=== PATIENT | male | born 1950 | race Caucasian/White ===

== ENCOUNTER → 2017-05-17 | Outpatient (CLI) | payer BC, MEDICARE ==
[~2017-05-17] MED LIST: ASPIRIN 81MG TA81 MG PO; BACTRIM DS 8001 TA1 PO; CARVEDILOL 1212.5 MG PO; EFFIENT10 M2 PO; LIPITOR40 M1 PO; PANTOPRAZOLE SO40 M1 PO; TAMSULOSIN HYD0.4 MG PO; VASCEPA1 GM PO
[2017-05-17 13:03] LABS: BILIRUBIN, INDIRECT 0.94 mg/dL (0-0.9); BUN 21 mg/dL (7-18)
[2017-05-17 13:04] LABS: GFR (ESTIMATED) 61 ML/MIN (>60)
--- NOTE | 2017-05-17 16:00 | RADIOLOGY REPORT PS360 ---
CHEST(2 VIEWS-NOT PORTABLE) HISTORY: SHORTNESS OF BREATH, CAD ORDERING PHYSICIAN: Tim Ansari MD PATIENT AGE: 66 years COMPARISON: None FINDINGS: There are severe present but is changes with bullous change in the right upper lobe and left midlung. There is normal heart size. There is coarsening of the interstitial markings in the lower lobes consistent with chronic peribronchial inflammatory change/chronic interstitial pneumonitis/fibrosis. No lobar consolidation or collapse. No acute bony anomalies. IMPRESSION: Emphysematous changes with pulmonary fibrosis
--- NOTE | 2017-05-17 19:18 | RADIOLOGY REPORT PS360 ---
PROCEDURE: 2-D M-mode and color Doppler study INDICATIONS FOR THE TEST: Chest pain COPD Heart Murmur Tobacco Smoking Palpitations Fatigue Syncope Edema HypertensionXDiabetes Mellitus Rheumatic Fever SOBXDOEXObesityXHyperlipidemiaX Family History HD Additional History CAD STENTS PATIENT INFORMATION HEIGHT: 68 WEIGHT:218 GENDER: Male B/P:132/80 2-D/M-MODE INTERPRETATION: 2-D MEASUREMENTS OBSERVED VALUES IN CMS Right Ventricular Dimension (RVDd) 2.4 Interventricular Septum (Thickness)(IVsd) 1.3 Left Ventricular Internal Dimensions(LVIDd) 3.9 Left Ventricular Posterior Wall (Thickness)(LVPWd) 1.3 Aortic Root 4.6 Aortic Cusp Separation 2.2 Left Atrial Dimensions (LAD) 3.6 2D 1. Left atrium is mildly enlarged, left ventricle is normal size, there is mild concentric left ventricular hypertrophy, visually estimated ejection fraction of 55% with no obvious regional wall motion abnormality. 2. The right atrium and right ventricle are relatively normal size and function. 3. The aortic valve is minimally thickened and fibrosed. 4. The mitral and tricuspid valve are structurally normal. 5. The pulmonic valve is not well visualized. 6. No significant pericardial effusion noted. DOPPLER INTERROGATION: The Doppler interrogation of the aortic mitral and tricuspid valve reveals presence of mild mitral and tricuspid regurgitation, tricuspid regurgitant jet velocity is insufficient for calculation of the right ventricular systolic pressure. Grade 1 diastolic dysfunction seen without tissue Doppler evidence of raised left atrial pressure. CONCLUSION: 1. Mildly enlarged left atrium, normal left ventricular size, mild concentric left ventricular hypertrophy, visually estimated ejection fraction of 55% with no obvious regional wall motion abnormality, grade 1 diastolic dysfunction seen without tissue Doppler evidence of raised left atrial pressure. 2. Mild mitral and tricuspid regurgitation, tricuspid regurgitant jet velocity is insufficient for calculation of the right ventricular systolic pressure. 3. No significant pericardial effusion noted.
--- NOTE | 2017-05-18 11:31 | RADIOLOGY REPORT PS360 ---
CT CHEST W/WO CONTRAST HISTORY: Follow-up pulmonary nodule. Emphysema, dyspnea DYSPNEA, CAD, HTN ORDERING PHYSICIAN: Tim Ansari MD PATIENT AGE: 66 years TECHNIQUE: Helical acquisition obtained following the intravenous administration of 75 mL of Isovue 370 .. Axial, sagittal, and coronal reformatted images are generated and reviewed. COMPARISON: 01 25 16 FINDINGS: There are few scattered small lymph nodes within the mediastinum. No mediastinal or hilar adenopathy is evident. No mediastinal or hilar mass. Severe coronary artery calcifications are present. Normal heart size. No evidence of pericardial effusion. There are a few calcified nodes in the right hilum. There are severe panlobular emphysematous changes with bullous changes in the upper lobes more extensive on the right compared to the left. There is been no significant change in the right-sided subpleural nodules as previously described as well as fissural nodules. No new nodules are evident.. Pulmonary fibrotic changes are present in the lung bases with prominence of the interstitium and minimal honeycombing peripherally. Upper abdominal images are unremarkable. There is no evidence of aortic aneurysm or central pulmonary embolus. No acute bony anomalies are apparent. IMPRESSION: 1. Stable CT appearance of the chest. Small subpleural pulmonary nodules are unchanged. 2. Panlobular emphysematous change with bullous changes and pulmonary fibrosis as before.
== END ==
LOC: RT 12:26
PROVIDERS: Internal Medicine
DX: R06.00 Dyspnea, unspecified (principal); I25.10 Atherosclerotic heart disease of native coronary artery without angina pectoris; E78.5 Hyperlipidemia, unspecified; I10 Essential (primary) hypertension
CPT/HCPCS: Q9967

== ENCOUNTER 2017-06-25 19:26 | Inpatient (IN) | payer BC, MEDICARE ==
[~2017-06-25] VITALS: Ht 172.7 cm; Wt 99.8 kg
[2017-06-25 19:27] VITALS: BP 206/121
[2017-06-25] MEDS ORDERED: FUROSEMIDE 20MG20 MG PO (19:34)
[2017-06-25] MEDS ORDERED: RANEXA1000 M2 PO (19:35)
[2017-06-25] MEDS ORDERED: AMLO5TAB PO (19:35)
[2017-06-25] MEDS ORDERED: ANORO ELLIPTA1 POW IH (19:37)
--- NOTE | 2017-06-25 19:50 | Emergency Room Report ---
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 N Clinical Suspician of Infection? Y Mental Status: 1 - Regular (Normal Baseline) Sepsis Risk:Severe Sepsis Risk Have you (or family members/close friends) recently traveled outside the [place]? N If Yes, where/when: Have you had exposure to infectious disease within the past month? N TB? Other? Specify: Source patient, RN notes reviewed Exam Limitations no limitations Comment pT REPORTS he had [address] kulkarni on and now comes to the ED with complaints of SOA, chills, shiverying and says his urine is cloudy. He has not had any chest pain since stents were placed and he had 3 placed in December and 2 placed this past week Cardiac Chest Pain Chest pain indicative of cardiac No ALLERGIES Coded Allergies: diphenhydramine (From BENADRYL) (Mild, 06/23/17) (Haylie ZACARIAS,Kiara) Home Medications Active Scripts ASPIRIN (Aspirin) 81 MG PO DAILY #30 TAB Ref 2 Prov: 01/01/17 Prasugrel HCl (Effient) 10 MG PO DAILY #30 TAB Ref 2 Prov: 01/01/17 Carvedilol (Carvedilol 12.5MG) 12.5 MG PO BID #60 TAB Ref 2 Prov: 01/01/17 Reported Medications TAMSULOSIN HCL (Tamsulosin 0.4MG) 0.4 MG PO QHS Icosapent Ethyl (Vascepa) 1 GM PO BID Furosemide (Furosemide) 20 MG PO QOD #15 TAB Atorvastatin Calcium (Atorvastatin) 2 TABS PO DAILY Pantoprazole Sodium 40 MG PO DAILY #60 Ranolazine (Ranexa) 1,000 MG PO BID #60 Amlodipine Besylate (Amlodipine) 5 MG PO DAILY #30 UMECLIDINIUM BRM/VILANTEROL TR (Anoro Ellipta 62.5-25 Mcg INH) 1 POW IH DAILY #60 (Shabbir ZACARIAS, Kj) History Medical History General CAD? Yes Angina: Yes HI: Yes Hypertension? Yes Hyperlipidemia? Yes CHF? No DVT? No PE? No COPD? No Asthma? No Anemia? No GERD? Yes Gastric ulcers? No GI Bleed? No Hernia? No Thyroid Problems? No Hypothyroidism? No CVA? No Seizures? No Diabetes? No UTI? No Stones? No BPH? No GB Disease: No Hepatitis? No Migraines? No Cataracts? No Glaucoma? No TB? No Cancer? No Immunization Hx DT/Tetanus Unknown Flu 2016-FSN Pneumonia Refuses Surgical Hx Previous Surgery?Y stent cardiac CARDIOAC STENTS X 2 Family History Family Hx Diabetes No CAD No Hypertension No Hyperlipidemia No Cancer No TB No Social History Smoking Hx Smoker: Former Smoker Tobacco: No Alcohol Alcohol: No (Haylie ZACARIAS,Kiara) Review of Systems All Other Systems Reviewed and Negative Constitutional see HPI Respiratory see HPI Cardiovascular see HPI Genitourinary see HPI. (Haylie ZACARIAS,Kiara) Physical Exam Vital Signs Vital Signs Date Time Temp Pulse Resp B/P Pulse O2 O2 Flow FiO2 Ox Delivery Rate 06/25 2243 86 20 105/61 93 06/25 2211 80 20 110/65 93 06/25 2144 99.9 86 20 119/66 94 06/25 2030 99.6 86 20 127/65 94 06/25 2010 100.8 85 20 94 06/25 2009 86 16 129/72 94 06/25 192 99.8 104 24 206/121 95 General Appearance normal appearance, WD/WN, no apparent distress Respiratory Status No: respiratory distress. Lung Sounds bilateral: normal breath sounds. 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 No Results/Orders Laboratory Tests 06/25/172199: Troponin I 0.10 H 06/25/172199: Lactic Acid 1.4 06/25/172029: Urine Color YELLOW, Urine Appearance SL CLOUDY, Urine pH 8.0, Ur Specific [place] 1.015, Urine Protein NEGATIVE, Urine Ketones NEGATIVE, Urine Blood TRACE -LYSED, Urine Nitrate POSITIVE H, Urine Bilirubin NEGATIVE, Urine Urobilinogen 2.0, Ur Leukocyte Esterase 1+ H, Urine RBC NONE, Urine WBC 50-100, Ur Squamous Epith Cells NONE, Urine Bacteria 4+, Urine Glucose NEGATIVE 06/25/171944: Sodium 135 L, Potassium 4.4, Chloride 99, Carbon Dioxide 27, BUN 22 H, Creatinine 1.3, Estimated Creat Clear 80, Estimated GFR (MDRD) 55, Glucose 95, Calcium 8.9, Total Bilirubin 0.7, AST 16, ALT 31, Alkaline Phosphatase 71, Creatine Kinase 88, CK-MB (CK-2) Rel Index 2.0, CK and CKMB Interp 1.8, Troponin I 0.09 H, B-Natriuretic Peptide 33, Total Protein 8.4 H, Albumin 4.1, Globulin 4.3 H, Albumin/Globulin Ratio 1.0 L, WBC 11.3 H, RBC 4.89, Hgb 15.5, Hct 44.3 , MCV 90.7, RDW 13.8, Plt Count 194, MPV 6.9 L, Gran % 79.5, Gran # 9.0 H, Lymphocytes % 12.4, Monocytes % 6.7, Eosinophils % 1.0, Basophils % 0.4, Lymphocytes # 1.4, Monocytes # 0.8, Eosinophils # 0.1, Basophils # 0.0, PUBS MCHC 34.9, MCH 31.6 H Current Medication Orders Sig/Erik Start time Last Medication Dose Route Stop Time Status Admin Ondansetron HCl 4 MG ONCE ONE 06/25 2345 DC 06/25 IV 06/25 234 2347 Ondansetron HCl 0 .STK-MED ONE 06/25 2345 DC .ROUTE Ondansetron HCl 4 MG ONCE ONE 06/25 2200 DC 06/25 IV 06/25 Ondansetron HCl 0 .STK-MED ONE 06/25 2157 DC .ROUTE Levofloxacin/Dextrose 150 ML .STK-MED ONE 06/25 2118 DC IV Levofloxacin/Dextrose 150 ML ONCE ONE 06/25 2115 DCr 06/25 IV 06/25 Acetaminophen 650 MG ONCE ONE 06/25 2030 DC 06/25 PO 06/25 Acetaminophen 0 .STK-MED ONE 06/25 2025 DC PO Sodium Chloride 10 ML PRN PRN 06/25 1945 AC 06/26 IV 06/26 1939 0050 Orders Procedure Date/time Status Decision to admit 06/25 2353 Active TROPONIN I 06/25 2135 Complete CULTURE, URINE 06/25 2030 Active CHEST-PORTABLE 06/25 2006 Active ELECTROCARDIOGRAM REQUEST 06/25 1955 Active IV SALINE LOCK 06/25 1940 Active CULTURE, BLOOD 06/25 1940 Active URINALYSIS/COMPLETE 06/25 1940 Complete LACTIC ACID 06/25 1940 Complete CBC WITH AUTO DIFF 06/25 1940 Complete CARDIAC ENZYMES 06/25 1940 Complete CHEM 12 PROFILE 06/25 1940 Complete BRAIN NATRIURETIC PEPTIDE 06/25 1940 Complete 12 LEAD EKG-[facility] (INITIAL) 06/25 UNK Active CM/EKG CM/EKG Comments EKG interpreted by Kj Shea MD: Rhythm: sinus Rate: 83 [place]: normal Ectopy: none Conduction: normal ST Segment Changes: none T Wave Changes: none Q Waves: none No evidence of acute ischemia or injury Baseline artifact and wander present XRAY/CT/US XRAY/CT/US XRAY chest Comment X-ray interpreted by Kj Shea M.D.: Emphysema and pulmonary fibrosis, no change from prior Progress - 9:30 PM: Discussed results with the patient. He has had urinary tract infections in the past, and new one was coming on. He does have some dysuria and frequency. He says his chilling has resolved and he feels well enough to go home. Second troponin will be checked. I suspect his troponin is just mildly elevated due to his recent stent placement. If stable, will discharge for outpatient treatment and follow-up. 11:40 PM: Case discussed with Dr. Kulkarni. He feels the troponin levels are expected after stent placement. No further workup needed. Patient now says he feels awful. Chills, nausea. Temperature has started to go back up. He does not feel he can go home. Call placed to Dr. Hammond's service. 11:51 PM: I have discussed the case with Dr. Casillas for Dr. Hammond who agrees to admit the patient to the hospital. We discussed the patient's clinical information, including history, exam, laboratory and radiology results and ED course. Per hospital procedure, I will write temporary bridge inpatient orders on the patient. Specific orders requested by the admitting physician: Continue Elvin (Kj Shea MD) Departure Departure Time of Disposition 2007 Disposition Still a Patient Condition STABLE Referrals Robert Hammond MD Additional Instructions EKG, Labs and xrays ordered and final disposition will be made by Dr. Shea after all labs and xrays have returned. Discharge Counseling Counseled pt/family regarding diagnosis, test results, follow up needs ED Critical Care Critical Care No If Critical Care minutes are documented, the time involved in the performance of seperately reportable procedures was not counted toward critical care time documented. I directly delivered medical care to this critically ill and/or injured patient. Timely evaluation and treatment was necessary to address the significant organ system(s) dysfunction present in this patient. (Kiara Stallings MD) Departure Clinical Impression Primary Impression: UTI (urinary tract infection) Qualifiers: Urinary tract infection type: acute pyelonephritis Qualified Code: N10 - Acute pyelonephritis Secondary Impressions: Dysuria Fever Qualifiers: Fever type: unspecified Qualified Code: R50.9 - Fever, unspecified SOB (shortness of breath) (Kj Shea MD) at 2010 at 0446
[2017-06-25 20:01] LABS: HEMOGLOBIN 15.5 g/dL (14.1-18.0); LYMPH # 1.4 K/mm3 (0.7-4.5); LYMPH % 12.4 % (10-50)
[2017-06-25 20:57] LABS: URINE BILIRUBIN - DIPSTICK NEGATIVE (NEG); URINE BLOOD TRACE-LYSED (NEG)
[2017-06-26 00:51] VITALS: BP 120/73
[2017-06-26] MEDS ORDERED: LIPITOR40 MG PO (01:05)
[2017-06-26 03:52] VITALS: BP 93/52
--- NOTE | 2017-06-26 07:06 | HISTORY AND PHYSICAL REPORT ---
Demographics: Admit date: 06/25/17 Chief complaint: Fever PRIMARY DIAGNOSIS: UTI Allergies: Coded Allergies: diphenhydramine (From BENADRYL) (Mild, 06/23/17) History of present illness: History of present illness: 66-year-old male presented to the emergency department yesterday after onset of fever with noticeable cloudy urine and mild dyspnea. Patient is undergone cardiac catheterization approximately 48 hours prior at this facility. He did not have a Freeman catheter during his cardiac catheterization. He has a history of urinary tract infections. All he noticed that his urine was cloudy he denies any hematuria although states in the past that has occurred when he has let the infection go on too long. He had fever at home as well as fever in the emergency department of 100.8. Initially the patient was treated with some IV fluids and IV antibiotics and Tylenol and noticed improvement when his fever broke but within an hour of his fever breaking temperature began to rise again. Decision was made to admit the patient. His morning he states he is feeling slightly better. Past medical history: Family HX Family Hx Insignificant No Diabetes No CAD No Hypertension No Hyperlipidemia No Cancer No TB No Immunization HX DT/Tetanus Unknown Flu 2015-FSN Pneumonia Refuses TB Test in last year No General CAD? Yes Angina: Yes OR: Yes Hypertension? Yes Hyperlipidemia? Yes CHF? No DVT? No PE? No COPD? No Asthma? No Anemia? No GERD? Yes Gastric ulcers? No GI Bleed? No Hernia? No Thyroid Problems? No Hypothyroidism? No CVA? No Seizures? No Diabetes? No UTI? No Stones? No BPH? No GB Disease: No Hepatitis? No Migraines? No Cataracts? No Glaucoma? No TB? No Cancer? No More? Yes Past Surgical HX Previous Surgery?Y CARDIAC STENTS X2 CARDIOAC STENTSX3 06/23/17 Current home meds: Active Scripts ASPIRIN (Aspirin) 81 MG PO DAILY #30 TAB Ref 2 Prov: 01/01/17 Prasugrel HCl (Effient) 10 MG PO DAILY #30 TAB Ref 2 Prov: 01/01/17 Carvedilol (Carvedilol 12.5MG) 12.5 MG PO BID #60 TAB Ref 2 Prov: 01/01/17 Reported Medications TAMSULOSIN HCL (Tamsulosin 0.4MG) 0.4 MG PO QHS Icosapent Ethyl (Vascepa) 1 GM PO BID Furosemide (Furosemide) 20 MG PO QOD #15 TAB Atorvastatin Calcium (Atorvastatin) 2 TABS PO DAILY Pantoprazole Sodium 40 MG PO DAILY #60 Ranolazine (Ranexa) 1,000 MG PO BID #60 Amlodipine Besylate (Amlodipine) 5 MG PO DAILY #30 UMECLIDINIUM BRM/VILANTEROL TR (Anoro Ellipta 62.5-25 Mcg INH) 1 POW IH DAILY #60 Social Hx: Smoking HX Tobacco No Type Cigarettes Packs/day 1 1/2 - 2 PACKS Are you/the child exposed to second-hand smoke: Yes Alcohol Alcohol: No Hx of Drug Use Drug Use? No Patient's support system is good Review of systems: Constitutional chills, fever, malaise. Respiratory shortness of breath. No: cough. Cardiovascular No chest pain, No edema, No palpitations Gastrointestinal/Abdominal no symptoms reported Genitourinary see HPI. Musculoskeletal no symptoms reported. Neurological Yes: no symptoms reported. Exam: Lab data for last 24 hours: Laboratory Tests 06/25/172199: Troponin I 0.10 H 06/25/172199: Lactic Acid 1.4 06/25/17 2030: Urine Color YELLOW, Urine Appearance SL CLOUDY, Urine pH 8.0, Ur Specific [place] 1.015, Urine Protein NEGATIVE, Urine Ketones NEGATIVE, Urine Blood TRACE -LYSED, Urine Nitrate POSITIVE H, Urine Bilirubin NEGATIVE, Urine Urobilinogen 2.0, Ur Leukocyte Esterase 1+ H, Urine RBC NONE, Urine WBC 50-100, Ur Squamous Epith Cells NONE, Urine Bacteria 4+, Urine Glucose NEGATIVE 06/25/17 1945: Sodium 135 L, Potassium 4.4, Chloride 99, Carbon Dioxide 27, BUN 22 H, Creatinine 1.3, Estimated Creat Clear 80, Estimated GFR (MDRD) 55, Glucose 95, Calcium 8.9, Total Bilirubin 0.7, AST 16, ALT 31, Alkaline Phosphatase 71, Creatine Kinase 88, CK-MB (CK-2) Rel Index 2.0, CK and CKMB Interp 1.8, Troponin I 0.09 H, B-Natriuretic Peptide 33, Total Protein 8.4 H, Albumin 4.1, Globulin 4.3 H, Albumin/Globulin Ratio 1.0 L, WBC 11.3 H, RBC 4.89, Hgb 15.5, Hct 44.3 , MCV 90.7, RDW 13.8, Plt Count 194, MPV 6.9 L, Gran % 79.5, Gran # 9.0 H, Lymphocytes % 12.4, Monocytes % 6.7, Eosinophils % 1.0, Basophils % 0.4, Lymphocytes # 1.4, Monocytes # 0.8, Eosinophils # 0.1, Basophils # 0.0, PUBS MCHC 34.9, MCH 31.6 H Microbiology 06/25 2030 URINE CC: Urine Culture - RES 06/25 1945 BLOOD: Anaerobic Blood Culture - RECD 06/25 1945 BLOOD: Aerobic Blood Culture - RECD 06/25 1945 BLOOD: Anaerobic Blood Culture - RECD 06/25 1945 BLOOD: Aerobic Blood Culture - RECD Admission vital signs: 1ST Vital Signs Result Date Time Pulse Ox 95 06/25 192 B/P 206/121 06/25 1927 Temp 99.8 06/25 1927 Pulse 104 06/25 192 Resp 24 06/25 192 O2 Delivery ROOM AIR 06/26 0051 Vital Signs Date Time Temp Pulse Resp B/P Pulse O2 O2 Flow FiO2 Ox Delivery Rate 06/26 0352 99.2 70 20 93/52 100 ROOM AIR 06/26 0105 80 / 0105 91 ROOM AIR 06/26 0051 98.5 80 20 120/73 / 0051 98.5 80 20 120/73 91 ROOM AIR 06/26 0031 99.9 87 20 108/65 95 / 0011 87 20 108/65 95 Exam General appearance: normal appearance, alert, awake Eyes: normal exam, anicteric ENT: normal exam, mucous membranes moist Neck: normal inspection, non-tender, no carotid bruit, no JVD Cardiovascular: normal exam Respiratory: normal exam, clear to auscultation ABD: normal exam, non-distended, normal bowel sounds Extremities: normal exam Plan: Problem List 1. Urinary tract infection 2. Fever 3. SOB (shortness of breath) Plan: Patient's been admitted and received Levaquin in the emergency department. I will start intravenous gentamicin this morning. Continue patient's home medications. Monitor his blood pressure. Await urine and blood cultures.
[2017-06-26 07:27] VITALS: BP 117/56
--- NOTE | 2017-06-26 09:45 | RADIOLOGY REPORT PS360 ---
CHEST-PORTABLE COMPARISON: PA and lateral chest 05/17/2017 HISTORY: Fever and chills after stent placement TECHNIQUE: Oral upright chest FINDINGS: The lung bernabe are well expanded. There is minimal scattered discoid atelectasis left perihilar region and at the right base along with minimal diffuse interstitial fibrotic changes as noted previously. The upper lung bernabe are clear. Cardiac size is normal and is no evidence of failure. There is diffuse multilevel degenerative changes of the thoracic spine. IMPRESSION: Chronic basilar changes with some superimposed areas of discoid atelectasis
--- NOTE | 2017-06-26 10:09 | PHARMACY CLINIC NOTE ---
Patient Demographics Patient Demographics Admission date: 06/26/17 Date: 06/26/17 Time: 1009 Allergies Coded Allergies: diphenhydramine (From BENADRYL) (Mild, 06/23/17) HEIGHT- FT: 5 IN: 8.00 K.848 VTE General Information Labs: Laboratory Tests 06/25 1945 Hematology Hgb (14.1 - 18.0 g/dL) 15.5 Hct (42.0 - 52.0 %) 44.3 Plt Count (142 - 424 K/mm3) 194 Disclaimer The following section includes nursing documentation that has been pulled in for pharmacy review. Patient's VTE score: 5 Patient's VTE Risk: LOW RISK Clinical trial participant? No VTE prophylaxis [id number] VTE prophylaxis ordered? Yes Type of prophylaxis/treatment: DIANN at 1003
--- NOTE | 2017-06-26 10:19 | CONSULT NOTE ---
Pharmacokinetic Consult Date of consult: 06/26/17 Time of consult: 1017 Referring provider: DR. GALLO/[facility] Reason for consult: GENTAMICIN DOSING Allergies: Coded Allergies: diphenhydramine (From BENADRYL) (Mild, 06/23/17) Home Medications: Active Scripts ASPIRIN (Aspirin) 81 MG PO DAILY #30 TAB Ref 2 Prov: 01/01/17 Prasugrel HCl (Effient) 10 MG PO DAILY #30 TAB Ref 2 Prov: 01/01/17 Carvedilol (Carvedilol 12.5MG) 12.5 MG PO BID #60 TAB Ref 2 Prov: 01/01/17 Reported Medications TAMSULOSIN HCL (Tamsulosin 0.4MG) 0.4 MG PO QHS Icosapent Ethyl (Vascepa) 1 GM PO BID Furosemide (Furosemide) 20 MG PO QOD #15 TAB Atorvastatin Calcium (Atorvastatin) 2 TABS PO DAILY Pantoprazole Sodium 40 MG PO DAILY #60 Ranolazine (Ranexa) 1,000 MG PO BID #60 Amlodipine Besylate (Amlodipine) 5 MG PO DAILY #30 UMECLIDINIUM BRM/VILANTEROL TR (Anoro Ellipta 62.5-25 Mcg INH) 1 POW IH DAILY #60 Height (feet): 5 Height (inches): 8.00 Medical History: CAD? Yes Angina: Yes MA: Yes Hypertension? Yes Hyperlipidemia? Yes CHF? No DVT? No PE? No COPD? No Asthma? No Anemia? No GERD? Yes Gastric ulcers? No GI Bleed? No Hernia? No Thyroid Problems? No Hypothyroidism? No CVA? No Seizures? No Diabetes? No UTI? No Stones? No BPH? No GB Disease: No Hepatitis? No Migraines? No Cataracts? No Glaucoma? No TB? No Cancer? No More? Yes Labs: Laboratory Tests 06/25/17 2200: Troponin I 0.10 H 06/25/170: Lactic Acid 1.4 06/25/17 2030: Urine Color YELLOW, Urine Appearance SL CLOUDY, Urine pH 8.0, Ur Specific [place] 1.015, Urine Protein NEGATIVE, Urine Ketones NEGATIVE, Urine Blood TRACE -LYSED, Urine Nitrate POSITIVE H, Urine Bilirubin NEGATIVE, Urine Urobilinogen 2.0, Ur Leukocyte Esterase 1+ H, Urine RBC NONE, Urine WBC 50-100, Ur Squamous Epith Cells NONE, Urine Bacteria 4+, Urine Glucose NEGATIVE 06/25/171944: Sodium 135 L, Potassium 4.4, Chloride 99, Carbon Dioxide 27, BUN 22 H, Creatinine 1.3, Estimated Creat Clear 80, Estimated GFR (MDRD) 55, Glucose 95, Calcium 8.9, Total Bilirubin 0.7, AST 16, ALT 31, Alkaline Phosphatase 71, Creatine Kinase 88, CK-MB (CK-2) Rel Index 2.0, CK and CKMB Interp 1.8, Troponin I 0.09 H, B-Natriuretic Peptide 33, Total Protein 8.4 H, Albumin 4.1, Globulin 4.3 H, Albumin/Globulin Ratio 1.0 L, WBC 11.3 H, RBC 4.89, Hgb 15.5, Hct 44.3 , MCV 90.7, RDW 13.8, Plt Count 194, MPV 6.9 L, Gran % 79.5, Gran # 9.0 H, Lymphocytes % 12.4, Monocytes % 6.7, Eosinophils % 1.0, Basophils % 0.4, Lymphocytes # 1.4, Monocytes # 0.8, Eosinophils # 0.1, Basophils # 0.0, PUBS MCHC 34.9, MCH 31.6 H Microbiology 06/25 2030 URINE CC: Urine Culture - RES 06/25 1945 BLOOD: Anaerobic Blood Culture - RECD 06/25 1945 BLOOD: Aerobic Blood Culture - RECD 06/25 1945 BLOOD: Anaerobic Blood Culture - RECD 06/25 1945 BLOOD: Aerobic Blood Culture - RECD Problem List: 1. Urinary tract infection Plan: BASED ON PATIENT FACTORS, RECOMMEND GENTAMICIN 400 MG (5 MG/KG/DBW) IV Q24H. WILL OBTAIN LEVELS AT 4 AND 12-HOURS POST INFUSION. PHARMACY WILL FOLLOW DAILY AND ADJUST APPROPRIATE. at 1018
[2017-06-26 15:19] VITALS: BP 93/45
[2017-06-26 19:47] VITALS: BP 123/69
[2017-06-27 04:05] VITALS: BP 91/46
[2017-06-27 07:22] VITALS: BP 106/61
[2017-06-27 08:13] VITALS: BP 106/61
--- NOTE | 2017-06-27 08:33 | ACUTE CARE PROGRESS NOTE (QUA) ---
Progress Notes Subjective Date 06/27/17 Time 0830 Note Patient has defervesced but continues to feel very weak, yesterday was urinating about every 15-20 minutes. Feels "wiped out." Patient alert, oriented. Blood pressure are in the low normal range. Heart rate regular. Lungs are clear. Abdomen is soft, nontender. No CVA tenderness. Objective Findings Laboratory Tests 06/27/17 0445: Random Gentamicin 1.1 L 06/26/17 1654: Random Gentamicin 5.0 Last VS-Temp:98.5 B/P:106/61 Pulse:69 Resp:18 SaO2:91 ROOM AIR Last weight lbs:220 oz:2 K.848 Method:Digital Scales Reviewed: allergies, medications, lab results Assessment/Plan Problem List 1. Urinary tract infection Qualifiers: Urinary tract infection type: acute pyelonephritis Qualified Code: N10 - Acute pyelonephritis 2. Fever Qualifiers: Fever type: unspecified Qualified Code: R50.9 - Fever, unspecified 3. SOB (shortness of breath) Patient condition Improving Plan: continue current care, urine culture shows E. coli, sensitive to levofloxacin and gentamicin, continue these agents. Urology consultation tomorrow given his repetitive UTI episodes. Labs in the morning. Renal ultrasound. Pyridium for comfort today as well as a fluid bolus given his lack of by mouth intake. This inpt stay is expected to cross 2 MNs from start of care Yes at 0832
--- NOTE | 2017-06-27 09:52 | CONSULT NOTE ---
Pharmacokinetic Consult Date of consult: 06/27/17 Time of consult: 947 Referring provider: DR MACEDO Reason for consult: GENTAMICIN LEVELS Allergies: Coded Allergies: diphenhydramine (From BENADRYL) (Mild, 06/23/17) Home Medications: Active Scripts ASPIRIN (Aspirin) 81 MG PO DAILY #30 TAB Ref 2 Prov: 01/01/17 Prasugrel HCl (Effient) 10 MG PO DAILY #30 TAB Ref 2 Prov: 01/01/17 Carvedilol (Carvedilol 12.5MG) 12.5 MG PO BID #60 TAB Ref 2 Prov: 01/01/17 Reported Medications Atorvastatin Calcium (Atorvastatin) 40 MG PO DAILY TAMSULOSIN HCL (Tamsulosin 0.4MG) 0.4 MG PO QHS Icosapent Ethyl (Vascepa) 1 GM PO BID Furosemide (Furosemide) 20 MG PO QOD #15 TAB Pantoprazole Sodium 40 MG PO DAILY #60 Ranolazine (Ranexa) 1,000 MG PO BID #60 Amlodipine Besylate (Amlodipine) 5 MG PO DAILY #30 UMECLIDINIUM BRM/VILANTEROL TR (Anoro Ellipta 62.5-25 Mcg INH) 1 POW IH DAILY #60 Height (feet): 5 Height (inches): 8.00 Medical History: CAD? Yes Angina: Yes [place]: Yes Hypertension? Yes Hyperlipidemia? Yes CHF? No DVT? No PE? No COPD? No Asthma? No Anemia? No GERD? Yes Gastric ulcers? No GI Bleed? No Hernia? No Thyroid Problems? No Hypothyroidism? No CVA? No Seizures? No Diabetes? No UTI? No Stones? No BPH? No GB Disease: No Hepatitis? No Migraines? No Cataracts? No Glaucoma? No TB? No Cancer? No More? Yes Labs: Laboratory Tests 06/27/17 0445: Random Gentamicin 1.1 L 06/26/17 1654: Random Gentamicin 5.0 Problem List: 1. Urinary tract infection Plan: 4-HOUR LEVEL: 5.0, CALCULATED PEAK: 7.3 MCG/ML 16-HOUR LEVEL: 1.1, CALCULATED TROUGH: 0.4 MCG/ML BASED ON LEVELS AND PATIENT FACTORS, RECOMMEND INCREASING DOSE TO GENTAMICIN 560 MG (7 MG/KG/DBW) IV Q24H TO REACH A TARGET PEAK > 10 MCG/ML. WILL OBTAIN A 12- HOUR POST INFUSION GENTAMICIN LEVEL. PHARMACY WILL FOLLOW DAILY AND ADJUST APPROPRIATE. at 0981
[2017-06-27 15:15] VITALS: BP 97/54
[2017-06-27 19:31] VITALS: BP 100/47
[2017-06-27 21:35] VITALS: BP 100/47
[2017-06-27 23:51] LABS: LYMPH # 1.3 K/mm3 (0.7-4.5); LYMPH % 20.5 % (10-50)
[2017-06-27 23:53] LABS: HEMOGLOBIN 13.5 g/dL (14.1-18.0)
[2017-06-28 04:00] VITALS: BP 109/60
[2017-06-28 06:48] LABS: HEMOGLOBIN 14.1 g/dL (14.1-18.0); LYMPH # 1.6 K/mm3 (0.7-4.5); LYMPH % 21.9 % (10-50)
[2017-06-28 07:53] VITALS: BP 97/50
--- NOTE | 2017-06-28 08:39 | ACUTE CARE PROGRESS NOTE (QUA) ---
Progress Notes Subjective Date 06/28/17 Time 0837 Note Overall patient feels somewhat better, continues to feel tired. Lungs are clear, heart rate regular, abdomen soft. Culture results reviewed. Patient on levofloxacin and gentamicin. Objective Findings Last VS-Temp:97.7 B/P:97/50 Pulse:54 Resp:18 SaO2:91 ROOM AIR Last weight lbs:220 oz:2 K.848 Method:Digital Scales Assessment/Plan Problem List 1. Urinary tract infection Qualifiers: Urinary tract infection type: acute pyelonephritis Qualified Code: N10 - Acute pyelonephritis 2. Fever Qualifiers: Fever type: unspecified Qualified Code: R50.9 - Fever, unspecified 3. SOB (shortness of breath) Patient condition Improving Plan: continue current care, urology consult today. If Dr. Kennedy agrees with plan I would discharge patient on levofloxacin orally and have him return for urology evaluation as an outpatient. This inpt stay is expected to cross 2 MNs from start of care Yes at 0838
[2017-06-28 09:05] VITALS: BP 97/50
--- NOTE | 2017-06-28 09:47 | CONSULT NOTE ---
Pharmacokinetic Consult Date of consult: 06/28/17 Time of consult: 945 Referring provider: DR. MACEDO Reason for consult: GENTAMICIN LEVEL Allergies: Coded Allergies: diphenhydramine (From BENADRYL) (Mild, 06/23/17) Home Medications: Active Scripts ASPIRIN (Aspirin) 81 MG PO DAILY #30 TAB Ref 2 Prov: 01/01/17 Prasugrel HCl (Effient) 10 MG PO DAILY #30 TAB Ref 2 Prov: 01/01/17 Carvedilol (Carvedilol 12.5MG) 12.5 MG PO BID #60 TAB Ref 2 Prov: 01/01/17 Reported Medications Atorvastatin Calcium (Atorvastatin) 40 MG PO DAILY TAMSULOSIN HCL (Tamsulosin 0.4MG) 0.4 MG PO QHS Icosapent Ethyl (Vascepa) 1 GM PO BID Furosemide (Furosemide) 20 MG PO QOD #15 TAB Pantoprazole Sodium 40 MG PO DAILY #60 Ranolazine (Ranexa) 1,000 MG PO BID #60 Amlodipine Besylate (Amlodipine) 5 MG PO DAILY #30 UMECLIDINIUM BRM/VILANTEROL TR (Anoro Ellipta 62.5-25 Mcg INH) 1 POW IH DAILY #60 Height (feet): 5 Height (inches): 8.00 Medical History: CAD? Yes Angina: Yes [place]: Yes Hypertension? Yes Hyperlipidemia? Yes CHF? No DVT? No PE? No COPD? No Asthma? No Anemia? No GERD? Yes Gastric ulcers? No GI Bleed? No Hernia? No Thyroid Problems? No Hypothyroidism? No CVA? No Seizures? No Diabetes? No UTI? No Stones? No BPH? No GB Disease: No Hepatitis? No Migraines? No Cataracts? No Glaucoma? No TB? No Cancer? No More? Yes Labs: Laboratory Tests 06/28/17 0630: Sodium 134 L, Potassium 4.9, Chloride 101, Carbon Dioxide 26, BUN 17, Creatinine 1.2, Estimated Creat Clear 87, Estimated GFR (MDRD) 61, Glucose 103, Calcium 8.5, Total Bilirubin 1.0, AST 13 L, ALT 25, Alkaline Phosphatase 58, Total Protein 7.1, Albumin 3.1 L, Globulin 4.0 H, Albumin/Globulin Ratio 0.8 L, WBC 7.3, RBC 4.47 L, Hgb 14.1, Hct 40.3 L, MCV 90.1, RDW 13.4, Plt Count 170, MPV 7.6, Gran % 67.9, Gran # 5.0, Lymphocytes % 21.9, Monocytes % 7.7, Eosinophils % 2.1, Basophils % 0.4, Lymphocytes # 1.6, Monocytes # 0.6, Eosinophils # 0.2, Basophils # 0.0, PUBS MCHC 35.0, MCH 31.5 H 06/27/17 2320: WBC 6.1, RBC 4.41 L, Hgb 13.5 L, Hct 39.6 L, MCV 89.8, RDW 13.5, Plt Count 183, MPV 7.3 L, Gran % 69.5, Gran # 4.2, Lymphocytes % 20.5, Monocytes % 7.4, Eosinophils % 2.2, Basophils % 0.4, Lymphocytes # 1.3, Monocytes # 0.5, Eosinophils # 0.1, Basophils # 0.0, PUBS MCHC 34.1, MCH 30.6, Random Gentamicin 2.1 L Problem List: 1. Urinary tract infection Plan: BASED ON 12-HOUR LEVEL LAST NIGHT, RECOMMEND CONTINUING GENTAMICIN 560 MG IV Q24H. PHARMACY WILL CONTINUE TO FOLLOW AND ADJUST APPROPRIATE. at 0947
--- NOTE | 2017-06-28 12:56 | RADIOLOGY REPORT PS360 ---
US [id number] HISTORY: Urinary tract infection UTI ORDERING PHYSICIAN: Robert Hammond MD PATIENT AGE: 66 years COMPARISON: None FINDINGS: RIGHT KIDNEY:Unremarkable. Normal size and echogenicity. No hydronephrosis. 12 x 5 x 6.7 cm 2.5 cm cyst lower pole, 1.4 cm cyst upper pole LEFT KIDNEY:Unremarkable. No hydronephrosis. Normal size and echogenicity. 10 x 5 x 6 cm OTHER FINDINGS: No other pertinent findings IMPRESSION: 1. No hydronephrosis. 2. There are 2 right renal cysts
[2017-06-28] MEDS ORDERED: LEVAQUIN500 MG PO (16:31)
--- NOTE | 2017-06-28 16:33 | DISCHARGE SUMMARY STANDARD ---
Demographics Admit date: 06/25/17 Discharge date: 06/28/17 History of present illness History of present illness 66-year-old male presented to the emergency department yesterday after onset of fever with noticeable cloudy urine and mild dyspnea. Patient is undergone cardiac catheterization approximately 48 hours prior at this facility. He did not have a Freeman catheter during his cardiac catheterization. He has a history of urinary tract infections. All he noticed that his urine was cloudy he denies any hematuria although states in the past that has occurred when he has let the infection go on too long. He had fever at home as well as fever in the emergency department of 100.8. Initially the patient was treated with some IV fluids and IV antibiotics and Tylenol and noticed improvement when his fever broke but within an hour of his fever breaking temperature began to rise again. Decision was made to admit the patient. His morning he states he is feeling slightly better. Hospital Course Hospital Course: patient was admitted, gentamicin was started,urine culture was obtained showing Escherichia coli, sensitive to Levaquin this was added. Patient improved in a stepwise fashion. This morning urology saw patient and felt he could be discharged on oral antibiotics with close followup. This will be done. He will follow up with cardiology as scheduled. Discharge diagnoses Problem List 1. Urinary tract infection 2. Fever 3. SOB (shortness of breath) Medications Medications: Discharge meds are as noted. Follow up Follow up in office in: 7 DAYS with: Lonnie Kennedy MD at 2378
[2017-06-28 16:37] VITALS: BP 110/70
--- NOTE | 2017-06-28 16:40 | CONSULT NOTE-UROLOGY ---
Urology Initial Visit Date of Visit: 06/28/17 HPI/Chief Complaint: Referring provider:LIVE Hammond MD,Robert 66/M Presenting problem: Length of time pt has had problem: Person attending patient for this visit: I have been asked to see this inpatient consult for urinary infection. He was seen by Dr. Medina in July of last year. His had 1 previous urinary infection. He takes tamsulosin and has for several years. Last week he had cardiac catheterization without Freeman catheter placement. 3 days later he developed chills and cloudy urine. He presented to the emergency room where he appeared to have a urinary infection. He was having some low back pain as well. Serum white count was normal. His urine culture had grown E. coli. He has been afebrile for the last 24 hours but was having significant temperature prior to that time. He typically feels he voids with a good stream. His postvoid residual bladder scan today was less than 30 mL. His postvoid residual last year for urologic evaluation was 40 mL. He has not had cystoscopy. He states that typically he has nocturia 1-2. We discussed consideration of further evaluation regarding his urinary infection with cystoscopy once his infection is cleared. Problem List: 1. Urinary tract infection 2. Dysuria 3. Enlarged prostate with lower urinary tract symptoms (LUTS) Past Medical History Arthritis? Diabetes? N Hyperlipedemia? Y Hypertension? Y Heart Problems? DC? Y SOA? Y Asthma? N Lung Disease? Y COPD? N TB? N Anemia? Y Bleeding Disorder? Cancer? N Radiation Tx? Hoarsness? Thyroid Problems? N Ulcers? N Kidney Disease? Liver Disease? Glaucoma? Seizures? N CVA? N Immune Disease? HIV? Trouble w/anesthesia? Abn PSA? Prostate Biopsy? Sexual Dysfunction? Abn Periods? Female Hormone Problems? Uterus/Ovary Problems? ? : Para: Control? Type of BC: Surgical & Social History: Previous Surgery?Y CARDIAC STENTS X2 CARDIOAC STENTSX3 06/23/17 Tobacco Use:N Type:Cigarettes Packs/day:1 1/2 - 2 Packs If No, have you ever used and quit how long ago? Alcohol Use: Marital Status: Occupation: Family History: Anemia? Arthritis? Asthma?Y TB?N Cancer?N Bleeding Troubles? Hyperlipidemia?N Diabetes?N COPD?Y Glaucoma? DC? Heart Problems? HIV? Hypertension?N Hoarsness? Immune Disease? Kidney Disease? Liver Disease? Lung Disease?Y Radiation Tx? Seizures? Shortness of Breath?Y Ulcers? CVA? Thyroid Problems? Trouble w/Anes? Any men in family ever diagnosed with prostate cancer?N Relationship of this person: Current Home Medications Active Scripts ASPIRIN (Aspirin) 81 MG PO DAILY #30 TAB Ref 2 Prov: 01/01/17 Prasugrel HCl (Effient) 10 MG PO DAILY #30 TAB Ref 2 Prov: 01/01/17 Carvedilol (Carvedilol 12.5MG) 12.5 MG PO BID #60 TAB Ref 2 Prov: 01/01/17 Reported Medications Atorvastatin Calcium (Atorvastatin) 40 MG PO DAILY TAMSULOSIN HCL (Tamsulosin 0.4MG) 0.4 MG PO QHS Icosapent Ethyl (Vascepa) 1 GM PO BID Furosemide (Furosemide) 20 MG PO QOD #15 TAB Pantoprazole Sodium 40 MG PO DAILY #60 Ranolazine (Ranexa) 1,000 MG PO BID #60 Amlodipine Besylate (Amlodipine) 5 MG PO DAILY #30 UMECLIDINIUM BRM/VILANTEROL TR (Anoro Ellipta 62.5-25 Mcg INH) 1 POW IH DAILY #60 Allergies: Coded Allergies: diphenhydramine (From BENADRYL) (Mild, 06/23/17) Review of Systems: Genitourinary (Male): Positive for: hematuria, nocturia. No: flank pain, frequency. Vital Signs/Wt/Labs Weight -LB:220 OZ:2 K.848 Method:Digital Scales Height -FT:5 IN:8 CM:172.72 BMI:33.4 Vital Signs Date Time Temp Pulse Resp B/P Pulse O2 O2 Flow FiO2 Ox Delivery Rate 06/28 1637 98.0 67 20 110/70 95 ROOM AIR 06/28 0905 97.7 54 18 97/50 91 06/28 0753 97.7 54 18 97/50 91 ROOM AIR 06/28 0400 97.8 58 16 109/60 92 ROOM AIR 06/27 2135 98.0 64 20 100/47 91 06/27 1931 98.0 64 20 100/47 91 ROOM AIR Color: Appearance Glucose: Ketone: Bilirubin: Sp.[place]: pH: Protein: Urobilinogen: Blood: Nitrite: Leukocytes: Urine collection method? Residual (ml): Laboratory Tests 06/28/17 0630: Sodium 134 L, Potassium 4.9, Chloride 101, Carbon Dioxide 26, BUN 17, Creatinine 1.2, Estimated Creat Clear 87, Estimated GFR (MDRD) 61, Glucose 103, Calcium 8.5, Total Bilirubin 1.0, AST 13 L, ALT 25, Alkaline Phosphatase 58, Total Protein 7.1, Albumin 3.1 L, Globulin 4.0 H, Albumin/Globulin Ratio 0.8 L, WBC 7.3, RBC 4.47 L, Hgb 14.1, Hct 40.3 L, MCV 90.1, RDW 13.4, Plt Count 170, MPV 7.6, Gran % 67.9, Gran # 5.0, Lymphocytes % 21.9, Monocytes % 7.7, Eosinophils % 2.1, Basophils % 0.4, Lymphocytes # 1.6, Monocytes # 0.6, Eosinophils # 0.2, Basophils # 0.0, PUBS MCHC 35.0, MCH 31.5 H 06/27/17 2320: WBC 6.1, RBC 4.41 L, Hgb 13.5 L, Hct 39.6 L, MCV 89.8, RDW 13.5, Plt Count 183, MPV 7.3 L, Gran % 69.5, Gran # 4.2, Lymphocytes % 20.5, Monocytes % 7.4, Eosinophils % 2.2, Basophils % 0.4, Lymphocytes # 1.3, Monocytes # 0.5, Eosinophils # 0.1, Basophils # 0.0, PUBS MCHC 34.1, MCH 30.6, Random Gentamicin 2.1 L 06/27/17 0445: Random Gentamicin 1.1 L 06/26/17 1654: Random Gentamicin 5.0 06/25/17 2200: Troponin I 0.10 H 06/25/17 2200: Lactic Acid 1.4 06/25/17 2030: Urine Color YELLOW, Urine Appearance SL CLOUDY, Urine pH 8.0, Ur Specific [place] 1.015, Urine Protein NEGATIVE, Urine Ketones NEGATIVE, Urine Blood TRACE -LYSED, Urine Nitrate POSITIVE H, Urine Bilirubin NEGATIVE, Urine Urobilinogen 2.0, Ur Leukocyte Esterase 1+ H, Urine RBC NONE, Urine WBC 50-100, Ur Squamous Epith Cells NONE, Urine Bacteria 4+, Urine Glucose NEGATIVE 06/25/171944: Sodium 135 L, Potassium 4.4, Chloride 99, Carbon Dioxide 27, BUN 22 H, Creatinine 1.3, Estimated Creat Clear 80, Estimated GFR (MDRD) 55, Glucose 95, Calcium 8.9, Total Bilirubin 0.7, AST 16, ALT 31, Alkaline Phosphatase 71, Creatine Kinase 88, CK-MB (CK-2) Rel Index 2.0, CK and CKMB Interp 1.8, Troponin I 0.09 H, B-Natriuretic Peptide 33, Total Protein 8.4 H, Albumin 4.1, Globulin 4.3 H, Albumin/Globulin Ratio 1.0 L, WBC 11.3 H, RBC 4.89, Hgb 15.5, Hct 44.3 , MCV 90.7, RDW 13.8, Plt Count 194, MPV 6.9 L, Gran % 79.5, Gran # 9.0 H, Lymphocytes % 12.4, Monocytes % 6.7, Eosinophils % 1.0, Basophils % 0.4, Lymphocytes # 1.4, Monocytes # 0.8, Eosinophils # 0.1, Basophils # 0.0, PUBS MCHC 34.9, MCH 31.6 H Microbiology Date/Time Procedure - Status Source Growth 06/25 2030 Urine Culture - COMP URINE CC ESCHERICHIA COLI 06/25 1945 Anaerobic Blood Culture - RES BLOOD 06/25 1945 Aerobic Blood Culture - RES BLOOD 06/25 1945 Anaerobic Blood Culture - RES BLOOD 06/25 1945 Aerobic Blood Culture - RES BLOOD Exam: General appearance: alert, active, no acute distress Objective: No CVA tenderness Impression/Plan: Recurrent urinary infection. I suggest we treat his current infection with 2 weeks of by mouth Levaquin. He will follow up with me in 3 weeks. We will discuss and arrange cystoscopy at that time. He is on anticoagulation for recent cardiac stent placement. at [id number]
[2017-06-28 17:26] VITALS: BP 110/70
[2017-07-21] MEDS ORDERED: LASIX20 MG (11:28)
--- OUTSIDE RECORDS SUMMARY | 2017-07-30 06:18 | External Medical Summary Rpt ---
Demographics Preferred Language [place]i Marital Status Unknown Holiness Affiliation Unknown Race Unknown Ethnic Group Unknown Author Author COLBY Address Unknown Phone Immunization No patient found.
--- OUTSIDE RECORDS SUMMARY | 2017-07-30 06:18 | External Medical Summary Rpt ---
Author Author COLBY Address Unknown Phone Purpose Continuity of Care Document - through 2016
--- OUTSIDE RECORDS SUMMARY | 2017-07-30 06:18 | External Medical Summary Rpt ---
Demographics Preferred Language [place] Marital Status Unknown Roman Catholic Affiliation Unknown Race Unknown Ethnic Group Unknown Author Author COLBY Address Unknown Phone Immunization No patient found.
--- OUTSIDE RECORDS SUMMARY | 2017-07-30 06:19 | External Medical Summary Rpt ---
Author Author COLBY Connor, COLBY [employer] Address Unknown Phone Unavailable Results Comprehensive metabolic 2000 panel in Serum or Plasma Observa Value Referen Units Interpr Notes Date tion ce etation Range Albumin/G 1.1 - 1.8 No Low No Sep 5 lobulin informati informati 2017 6:30 [Mass on in on in AM ratio] in source source Serum or data data Plasma Albumin 3.4 - 5.0 gm/dL Low No Sep 5 [Mass/vol informati 2017 6:30 ume] in on in AM Serum or source Plasma data Alkaline 46 - 116 U/L Normal No Sep 5 phosphata informati 2017 6:30 se on in AM [Enzymati source c data activity/ volume] in Serum or Plasma Bilirubin 0.2 - 1.0 mg/dL Normal No Sep 5 .total informati 2017 6:30 [Mass/vol on in AM ume] in source Serum or data Plasma Urea 7 - 18 mg/dL Normal No Sep 5 nitrogen informati 2017 6:30 [Mass/vol on in AM ume] in source Serum or data Plasma Calcium 8.5 - mg/dL Normal No Sep 5 [Mass/vol 10.1 informati 2017 6:30 ume] in on in AM Serum or source Plasma data Chloride 98 - 107 mmoL/L Normal No Sep 5 [Moles/vo informati 2017 6:30 lume] in on in AM Serum or source Plasma data Carbon 21.0 - mmoL/L Normal No Sep 5 dioxide, 32.0 informati 2017 6:30 total on in AM [Moles/vo source lume] in data Serum or Plasma Creatinin 0.70 - mg/dL Normal No Sep 5 e 1.30 informati 2017 6:30 [Mass/vol on in AM ume] in source Serum or data Plasma Creatinin 50 - 200 ML/MIN Normal No Sep 5 e renal informati 2017 6:30 clearance on in AM source predicted data by Cockcroft -Gault formula Estimated >60 ML/MIN No REFERENCE Sep 5 informati RANGE: 2017 6:30 glomerula on in >60 AM r source ML/MIN/1. filtratio data 73 SQUARE n rate METERSIf (GF this patient is -A merican, then multiply theresult by 1.210. Globulin 1.3 - 3.2 gm/dL High No Sep 5 [Mass/vol informati 2017 6:30 ume] in on in AM Serum source data Glucose 74 - 106 mg/dL Normal No Sep 5 [Mass/vol informati 2016 6:30 ume] in on in AM Serum or source Plasma data Potassium 3.5 - 5.1 mmoL/L Normal No Sep 5 inform2016 6:30 [Moles/vo on in AM lume] in source Serum or data Plasma Sodium 136 - 145 mmoL/L Low No Sep 5 [Moles/vo informati 2017 6:30 lume] in on in AM Serum or source Plasma data Aspartate 15 - 37 U/L Low No Sep 5 informati 2016 6:30 aminotran on in AM sferase source [Enzymati data c activity/ volume] in Serum or Plasma Alanine 12 - 78 U/L Normal No Sep 5 aminotran informati 2016 6:30 sferase on in AM [Enzymati source c data activity/ volume] in Serum or Plasma Protein 6.4 - 8.2 gm/dL Normal No Sep 5 [Mass/vol informati 2017 6:30 ume] in on in AM Serum or source Plasma data CBC W Auto Differential panel in Blood Observa Value Referen Units Interpr Notes Date tion ce etation Range Basophils 0 - 0.2 K/MM3 Normal No Sep 5 inform2016 6:30 [#/volume on in AM ] in source Blood by data Automated count Basophils 0.1 - 2.0 % Normal No Sep 5 /100 informati 2017 6:30 leukocyte on in AM s in source Blood by data Automated count Eosinophi 0.0 - 0.4 K/mm3 Normal No Sep 5 ls informati 2017 6:30 [#/volume on in AM ] in source Blood by data Automated count Eosinophi 0.1 - % Normal No Sep 5 ls/100 12.0 informati 2016 6:30 leukocyte on in AM s in source Blood by data Automated count Granulocy 1.3 - 8.0 K/mm3 Normal No Sep 5 isabelle informati 2016 6:30 [#/volume on in AM ] in source Blood by data Automated count Granulocy 37.0 - % Normal No Sep 5 isabelle/100 80.0 informati 2017 6:30 leukocyte on in AM s in source Blood by data Automated count Hematocri 42.0 - % Low No Sep 5 t [Volume 52.0 informati 2017 6:30 on in AM Fraction] source of Blood data Hemoglobi 14.1 - g/dL Normal No Sep 5 n 18.0 informati 2017 6:30 [Mass/vol on in AM ume] in source Blood data Lymphocyt 0.7 - 4.5 K/mm3 Normal No Sep 5 es informati 2017 6:30 [#/volume on in AM ] in source Unspecifi data ed specimen by Automated count Lymphocyt 10 - 50 % Normal No Sep 5 es informati 2017 6:30 [#/volume on in AM ] in source Unspecifi data ed specimen by Automated count Erythrocy 27 - 31.2 pg High No Sep 5 te mean informati 2016 6:30 corpuscul on in AM ar source hemoglobi data n [Entitic mass] Erythrocy 31.8 - g/dl Normal No Sep 5 te mean 35.4 informati 2017 6:30 corpuscul on in AM ar source hemoglobi data n concentra tion [Mass/vol ume] by Automated count Erythrocy 82.2 - fl Normal No Sep 5 te mean 97.8 informati 2017 6:30 corpuscul on in AM ar volume source [Entitic data volume] by Automated count Monocytes 0.1 - 1.0 K/mm3 Normal No Sep 5 informati 2017 6:30 [#/volume on in AM ] in source Blood by data Automated count Monocytes 1.7 - 9.3 % Normal No Sep 5 /100 informati 2017 6:30 leukocyte on in AM s in source Blood by data Automated count Platelet 7.4 - fl Normal No Sep 5 mean 10.4 informati 2017 6:30 volume on in AM [Entitic source volume] data in Blood by Automated count Platelets 142 - 424 K/mm3 Normal No Sep 5 informati 2017 6:30 [#/volume on in AM ] in source Blood data Erythrocy 4.6 - 6.2 M/mm3 Low No Sep 5 isabelle informati 2017 6:30 [#/volume on in AM ] in source Amniotic data fluid Erythrocy 11.5 - % Normal No Sep 5 te 17.5 informati 2017 6:30 distribut on in AM ion width source [Entitic data volume] by Automated count Leukocyte 4.8 - K/MM3 Normal No Sep 5 s 10.8 2016 6:30 [#/volume on in AM ] in source Blood data Gentamicin [Mass/volume] in Serum or Plasma Observa Value Referen Units Interpr Notes Date tion ce etation Range COMMENTS TO LICENSING REPRESENTATIVE: DO NOT NEED TO CALL PHARMACIST CYCLE DIRECTOR WITH LEVEL Gentamici 4.0 - ug/ml Low No Sep 4 n 10.0 inform2016 [Mass/vol on in 11:20 PM ume] in source Serum or data Plasma CBC W Auto Differential panel in Blood Observa Value Referen Units Interpr Notes Date tion ce etation Range Basophils 0 - 0.2 K/MM3 Normal No Sep 4 2016 [#/volume on in 11:20 PM ] in source Blood by data Automated count Basophils 0.1 - 2.0 % Normal No Sep 4 /100 2016 leukocyte on in 11:20 PM s in source Blood by data Automated count Eosinophi 0.0 - 0.4 K/mm3 Normal No Sep 4 ls 2016 [#/volume on in 11:20 PM ] in source Blood by data Automated count Eosinophi 0.1 - % Normal No Sep 4 ls/100 12.0 2016 leukocyte on in 11:20 PM s in source Blood by data Automated count Granulocy 1.3 - 8.0 K/mm3 Normal No Sep 4 isabelle 2016 [#/volume on in 11:20 PM ] in source Blood by data Automated count Granulocy 37.0 - % Normal No Sep 4 isabelle/100 80.0 2016 leukocyte on in 11:20 PM s in source Blood by data Automated count Hematocri 42.0 - % Low No Sep 4 t [Volume 52.0 2016 on in 11:20 PM Fraction] source of Blood data Hemoglobi 14.1 - g/dL Low No Sep 4 n 18.0 2016 [Mass/vol on in 11:20 PM ume] in source Blood data Lymphocyt 0.7 - 4.5 K/mm3 Normal No Sep 4 es 2016 [#/volume on in 11:20 PM ] in source Unspecifi data ed specimen by Automated count Lymphocyt 10 - 50 % Normal No Sep 4 es 2016 [#/volume on in 11:20 PM ] in source Unspecifi data ed specimen by Automated count Erythrocy 27 - 31.2 pg Normal No Sep 4 te mean 2016 corpuscul on in 11:20 PM ar source hemoglobi data n [Entitic mass] Erythrocy 31.8 - g/dl Normal No Sep 4 te mean 35.4 inform2016 corpuscul on in 11:20 PM ar source hemoglobi data n concentra tion [Mass/vol ume] by Automated count Erythrocy 82.2 - fl Normal No Sep 4 te mean 97.8 inform2016 corpuscul on in 11:20 PM ar volume source [Entitic data volume] by Automated count Monocytes 0.1 - 1.0 K/mm3 Normal No Sep 4 2016 [#/volume on in 11:20 PM ] in source Blood by data Automated count Monocytes 1.7 - 9.3 % Normal No Sep 4 /100 2016 leukocyte on in 11:20 PM s in source Blood by data Automated count Platelet 7.4 - fl Low No Sep 4 mean 10.4 inform2016 volume on in 11:20 PM [Entitic source volume] data in Blood by Automated count Platelets 142 - 424 K/mm3 Normal No Sep 4 2016 [#/volume on in 11:20 PM ] in source Blood data Erythrocy 4.6 - 6.2 M/mm3 Low No Sep 4 isabelle 2016 [#/volume on in 11:20 PM ] in source Amniotic data fluid Erythrocy 11.5 - % Normal No Sep 4 te 17.5 2016 distribut on in 11:20 PM ion width source [Entitic data volume] by Automated count Leukocyte 4.8 - K/MM3 No No Sep 4 s 10.8 informati 2016 [#/volume on in on in 11:20 PM ] in source source Blood data data Gentamicin [Mass/volume] in Serum or Plasma Observa Value Referen Units Interpr Notes Date tion ce etation Range COMMENTS TO LICENSING REPRESENTATIVE: DO NOT NEED TO CALL PHARMACIST CYCLE DIRECTOR WITH LEVEL Gentamici 4.0 - ug/ml Low No Sep 4 n 10.0 inform2016 4:45 [Mass/vol on in AM ume] in source Serum or data Plasma Gentamicin [Mass/volume] in Serum or Plasma Observa Value Referen Units Interpr Notes Date tion ce etation Range COMMENTS TO LICENSING REPRESENTATIVE: DO NOT NEED TO CALL PHARMACIST CYCLE DIRECTOR WITH LEVEL Gentamici 4.0 - ug/ml Normal No Sep 3 n 10.0 informati 2017 4:54 [Mass/vol on in PM ume] in source Serum or data Plasma Troponin I.cardiac [Mass/volume] in Serum or Plasma Observa Value Referen Units Interpr Notes Date tion ce etation Range Troponin 0.00 - ng/mL High 0.04 - Sep 2 I.cardiac 0.06 0.49 IS 2017 AN 10:00 PM [Mass/vol INDETERMI ume] in NANT Serum or ZONEAnd Plasma can be consisten t with the following diseases: Trauma Criticall y ill patients Glover >30% TBSACHF Hypothyro idism Amyloidos isHyperte nsion Myocardit is SepsisHyp otension Rhabdomyo lysis Vital exhaust.P ostop surgery Pulmonary embolism CVARenal failure Acute neurologi eladio disease Atrial fib. Lactate [Moles/volume] in Blood Observa Value Referen Units Interpr Notes Date ti ce etation Range Lactate 0.4 - 2.0 mmol/L Normal No Sep 2 [Moles/vo informati 2017 lume] in on in 10:00 PM Blood source data Urinalysis dipstick W Reflex Microscopic panel in Urine Observa Value Referen Units Interpr Notes Date ti ce etation Range Appeara SL CLEAR No No No Sep 2 nce of CLOUDY informa informa informa 2017 Urine tion in tion in tion in 8:30 PM source source source data data data Bacteri 4+ O No No No Sep 2 a informa informa informa 2017 [Presen tion in tion in tion in 8:30 PM ce] in source source source Urine data data data sedimen t by Light microsc opy Bilirub NEGATIV NEG No No No Sep 2 in E informa informa informa 2017 [Presen tion in tion in tion in 8:30 PM ce] in source source source Urine data data data by Test strip Erythro TRACE-L NEG No No No Sep 2 cytes YSED informa informa informa 2017 [Presen tion in tion in tion in 8:30 PM ce] in source source source Urine data data data Color YELLOW YELLOW No No No Sep 2 of informa informa informa 2017 Urine tion in tion in tion in 8:30 PM source source source data data data Glucose NEG No No No Sep 2 [Mass/vol informati informati informati 2017 8:30 ume] in on in on in on in PM Urine by source source source Test data data data strip Ketones NEGATIV NEG mg/dL No No Sep 2 E informa informa 2016 [Presen tion in tion in 8:30 PM ce] in source source Urine data data by Automat ed test strip Mucus 1+ NEG No Abnorma No Sep 2 [Presen informa l informa 2016 ce] in tion in tion in 8:30 PM Urine source source sedimen data data t by Light microsc opy Nitrite POSITIV NEG No Abnorma No Sep 2 E informa l informa 2016 [Presen tion in tion in 8:30 PM ce] in source source Urine data data by Test strip pH of 5.0 - 8.5 No Normal No Sep 2 Urine informati informati 2017 8:30 on in on in PM source source data data Protein NEG mg/dL No No Sep 2 [Mass/vol informati informati 2017 8:30 ume] in on in on in PM Urine by source source Automated data data test strip Erythro NONE 0 rbc/hpf No No Sep 2 cytes informa informa 2016 [Presen tion in tion in 8:30 PM ce] in source source Urine data data sedimen t by Light microsc opy Specific 1.005 - No Normal No Sep 2 gravity 1.030 informati informati 2017 8:30 of Urine on in on in PM source source data data Epithel NONE OCC #/hpf No No Sep 2 ial informa informa 2017 cells.s tion in tion in 8:30 PM quamous source source data data [Presen ce] in Urine sedimen t by Microsc opy high power field Urobili 2.0 NEG E.U./dL No No Sep 2 nogen informa informa 2016 [Presen tion in tion in 8:30 PM ce] in source source Urine data data by Test strip Leukocy [50 O wbc/hpf No No Sep 2 isabelle wbc/hpf informa informa 2016 [#/volu ; 100 tion in tion in 8:30 PM me] in wbc/hpf source source Urine ] data data Urinalysis dipstick W Reflex Microscopic panel in Urine Observa Value Referen Units Interpr Notes Date tion ce etation Range Appeara SL CLEAR No No No Sep 2 nce of CLOUDY informa informa informa 2017 Urine tion in tion in tion in 8:30 PM source source source data data data Bilirub NEGATIV NEG No No No Sep 2 in E informa informa informa 2016 [Presen tion in tion in tion in 8:30 PM ce] in source source source Urine data data data by Test strip Erythro TRACE-L NEG No No No Sep 2 cytes YSED informa informa informa 2016 [Presen tion in tion in tion in 8:30 PM ce] in source source source Urine data data data Color YELLOW YELLOW No No No Sep 2 of informa informa informa 2016 Urine tion in tion in tion in 8:30 PM source source source data data data Glucose NEG No No No Sep 2 [Mass/vol informati informati informati 2017 8:30 ume] in on in on in on in PM Urine by source source source Test data data data strip Ketones NEGATIV NEG mg/dL No No Sep 2 E informa informa 2016 [Presen tion in tion in 8:30 PM ce] in source source Urine data data by Automat ed test strip Mucus 1+ NEG No Abnorma No Sep 2 [Presen informa l informa 2016 ce] in tion in tion in 8:30 PM Urine source source sedimen data data t by Light microsc opy Nitrite POSITIV NEG No Abnorma No Sep 2 E informa l informa 2016 [Presen tion in tion in 8:30 PM ce] in source source Urine data data by Test strip pH of 5.0 - 8.5 No Normal No Sep 2 Urine informati informati 2017 8:30 on in on in PM source source data data Protein NEG mg/dL No No Sep 2 [Mass/vol informati informati 2017 8:30 ume] in on in on in PM Urine by source source Automated data data test strip Specific 1.005 - No Normal No Sep 2 gravity 1.030 informati informati 2017 8:30 of Urine on in on in PM source source data data Urobili 2.0 NEG E.U./dL No No Sep 2 nogen informa informa 2017 [Presen tion in tion in 8:30 PM ce] in source source Urine data data by Test strip Natriutietic peptide B [Mass/volume] in Serum or Plasma Observa Value Referen Units Interpr Notes Date tion ce etation Range Natriutie 0 - 100 pg/mL Normal No Sep 2 tic informati 2017 7:45 peptide B on in PM source [Mass/vol data ume] in Serum or Plasma Cardiac enzymes Observa Value Referen Units Interpr Notes Date tion ce etation Range Creatine 0 - 4.0 U/L Normal No Sep 2 kinase.MB informati 2017 7:45 /Creatine on in PM source kinase.to data catracho [Ratio] in Serum or Plasma Creatine 0.0 - 3.6 ng/mL Normal No Sep 2 kinase.MB informati 2017 7:45 on in PM [Mass/vol source ume] in data Serum or Plasma Creatine 39 - 308 U/L Normal No Sep 2 kinase informati 2017 7:45 [Enzymati on in PM c source activity/ data volume] in Serum or Plasma Troponin 0.00 - ng/mL High 0.04 - Sep 2 I.cardiac 0.06 0.49 IS 2017 7:45 AN PM [Mass/vol INDETERMI ume] in NANT Serum or ZONEAnd Plasma can be consisten t with the following diseases: Trauma Criticall y ill patients Glover >30% TBSACHF Hypothyro idism Amyloidos isHyperte nsion Myocardit is SepsisHyp otension Rhabdomyo lysis Vital exhaust.P ostop surgery Pulmonary embolism CVARenal failure Acute neurologi eladio disease Atrial fib. Comprehensive metabolic 2000 panel in Serum or Plasma Observa Value Referen Units Interpr Notes Date tion ce etation Range Albumin/G 1.1 - 1.8 No Low No Sep 2 lobulin informati informati 2017 7:45 [Mass on in on in PM ratio] in source source Serum or data data Plasma Albumin 3.4 - 5.0 gm/dL Normal No Sep 2 [Mass/vol informati 2017 7:45 ume] in on in PM Serum or source Plasma data Alkaline 46 - 116 U/L Normal No Sep 2 phosphata informati 2017 7:45 se on in PM [Enzymati source c data activity/ volume] in Serum or Plasma Bilirubin 0.2 - 1.0 mg/dL Normal No Sep 2 .total informati 2017 7:45 [Mass/vol on in PM ume] in source Serum or data Plasma Urea 7 - 18 mg/dL High No Sep 2 nitrogen informati 2017 7:45 [Mass/vol on in PM ume] in source Serum or data Plasma Calcium 8.5 - mg/dL Normal No Sep 2 [Mass/vol 10.1 informati 2017 7:45 ume] in on in PM Serum or source Plasma data Chloride 98 - 107 mmoL/L Normal No Sep 2 [Moles/vo informati 2017 7:45 lume] in on in PM Serum or source Plasma data Carbon 21.0 - mmoL/L Normal No Sep 2 dioxide, 32.0 informati 2017 7:45 total on in PM [Moles/vo source lume] in data Serum or Plasma Creatinin 0.70 - mg/dL Normal No Sep 2 e 1.30 informati 2017 7:45 [Mass/vol on in PM ume] in source Serum or data Plasma Creatinin 50 - 200 ML/MIN Normal No Sep 2 e renal informati 2017 7:45 clearance on in PM source predicted data by Cockcroft -Gault formula Estimated >60 ML/MIN No REFERENCE Sep 2 informati RANGE: 2017 7:45 glomerula on in >60 PM r source ML/MIN/1. filtratio data 73 SQUARE n rate METERSIf (GF this patient is -A merican, then multiply theresult by 1.210. Globulin 1.3 - 3.2 gm/dL High No Sep 2 [Mass/vol informati 2017 7:45 ume] in on in PM Serum source data Glucose 74 - 106 mg/dL Normal No Sep 2 [Mass/vol informati 2017 7:45 ume] in on in PM Serum or source Plasma data Potassium 3.5 - 5.1 mmoL/L Normal POTASSIUM Sep February 7:45 [Moles/vo FALSELY PM lume] in ELEVATED Serum or DUE TO Plasma SLIGHT HEMOLYSIS Sodium 136 - 145 mmoL/L Low No Sep 2 [Moles/vo informati 2017 7:45 lume] in on in PM Serum or source Plasma data Aspartate 15 - 37 U/L Normal AST FebruaryJun 252016 7:45 aminotran FALSELY PM sferase ELEVATED [Enzymati DUE TO c SLIGHT activity/ HEMOLYSIS volume] in Serum or Plasma Alanine 12 - 78 U/L Normal No Sep 2 aminotran informati 2017 7:45 sferase on in PM [Enzymati source c data activity/ volume] in Serum or Plasma Protein 6.4 - 8.2 gm/dL High No Sep 2 [Mass/vol informati 2017 7:45 ume] in on in PM Serum or source Plasma data CBC W Auto Differential panel in Blood Observa Value Referen Units Interpr Notes Date tion ce etation Range Basophils 0 - 0.2 K/MM3 Normal No Sep 2 informati 2017 7:45 [#/volume on in PM ] in source Blood by data Automated count Basophils 0.1 - 2.0 % Normal No Sep 2 /100 informati 2016 7:45 leukocyte on in PM s in source Blood by data Automated count Eosinophi 0.0 - 0.4 K/mm3 Normal No Sep 2 ls informati 2016 7:45 [#/volume on in PM ] in source Blood by data Automated count Eosinophi 0.1 - % Normal No Sep 2 ls/100 12.0 informati 2016 7:45 leukocyte on in PM s in source Blood by data Automated count Granulocy 1.3 - 8.0 K/mm3 High No Sep 2 isabelle informati 2016 7:45 [#/volume on in PM ] in source Blood by data Automated count Granulocy 37.0 - % Normal No Sep 2 isabelle/100 80.0 informati 2016 7:45 leukocyte on in PM s in source Blood by data Automated count Hematocri 42.0 - % Normal No Sep 2 t [Volume 52.0 informati 2016 7:45 on in PM Fraction] source of Blood data Hemoglobi 14.1 - g/dL Normal No Sep 2 n 18.0 informati 2016 7:45 [Mass/vol on in PM ume] in source Blood data Lymphocyt 0.7 - 4.5 K/mm3 Normal No Sep 2 es informati 2016 7:45 [#/volume on in PM ] in source Unspecifi data ed specimen by Automated count Lymphocyt 10 - 50 % Normal No Sep 2 es informati 2016 7:45 [#/volume on in PM ] in source Unspecifi data ed specimen by Automated count Erythrocy 27 - 31.2 pg High No Sep 2 te mean informati 2016 7:45 corpuscul on in PM ar source hemoglobi data n [Entitic mass] Erythrocy 31.8 - g/dl Normal No Sep 2 te mean 35.4 informati 2017 7:45 corpuscul on in PM ar source hemoglobi data n concentra tion [Mass/vol ume] by Automated count Erythrocy 82.2 - fl Normal No Sep 2 te mean 97.8 informati 2016 7:45 corpuscul on in PM ar volume source [Entitic data volume] by Automated count Monocytes 0.1 - 1.0 K/mm3 Normal No Sep 2 informati 2017 7:45 [#/volume on in PM ] in source Blood by data Automated count Monocytes 1.7 - 9.3 % Normal No Sep 2 /100 informati 2017 7:45 leukocyte on in PM s in source Blood by data Automated count Platelet 7.4 - fl Low No Sep 2 mean 10.4 informati 2017 7:45 volume on in PM [Entitic source volume] data in Blood by Automated count Platelets 142 - 424 K/mm3 Normal No Sep 2 informati 2016 7:45 [#/volume on in PM ] in source Blood data Erythrocy 4.6 - 6.2 M/mm3 Normal No Sep 2 isabelle informati 2017 7:45 [#/volume on in PM ] in source Amniotic data fluid Erythrocy 11.5 - % Normal No Sep 2 te 17.5 informati 2016 7:45 distribut on in PM ion width source [Entitic data volume] by Automated count Leukocyte 4.8 - K/MM3 High No Sep 2 s 10.8 informati 2016 7:45 [#/volume on in PM ] in source Blood data Activated clotting time in Blood by Coagulation assay Observa Value Referen Units Interpr Notes Date tion ce etation Range Activated 74 - 125 SEC High No Jun 23 clotting alert informati 2017 time in on in 12:46 PM Blood by source Coagulati data on assay Basic metabolic panel in Blood Observa Value Referen Units Interpr Notes Date tion ce etation Range Urea 7 - 18 mg/dL High No Jun 23 nitrogen informati 2017 7:50 [Mass/vol on in AM ume] in source Serum or data Plasma Calcium 8.5 - mg/dL Normal No Jun 23 [Mass/vol 10.1 informati 2017 7:50 ume] in on in AM Serum or source Plasma data Chloride 98 - 107 mmoL/L Normal No Jun 23 [Moles/vo informati 2017 7:50 lume] in on in AM Serum or source Plasma data Carbon 21.0 - mmoL/L Normal No Jun 23 dioxide, 32.0 informati 2016 7:50 total on in AM [Moles/vo source lume] in data Serum or Plasma Creatinin 0.70 - mg/dL Normal No Jun 23 e 1.30 informati 2016 7:50 [Mass/vol on in AM ume] in source Serum or data Plasma Estimated >60 ML/MIN No REFERENCE Jun 23 informati RANGE: 2017 7:50 glomerula on in >60 AM r source ML/MIN/1. filtratio data 73 SQUARE n rate METERSIf (GF this patient is -A merican, then multiply theresult by 1.210. Glucose 74 - 106 mg/dL High No Jun 23 [Mass/vol informati 2016 7:50 ume] in on in AM Serum or source Plasma data Potassium 3.5 - 5.1 mmoL/L Normal No Jun 23 informati 2016 7:50 [Moles/vo on in AM lume] in source Serum or data Plasma Sodium 136 - 145 mmoL/L Low No Jun 23 [Moles/vo informati 2016 7:50 lume] in on in AM Serum or source Plasma data CBC W Auto Differential panel in Blood Observa Value Referen Units Interpr Notes Date tion ce etation Range Granulocy 1.3 - 8.0 K/mm3 Normal No Jun 23 isabelle informati 2016 7:50 [#/volume on in AM ] in source Blood by data Automated count Granulocy 37.0 - % Normal No Jun 23 isabelle/100 80.0 informati 2016 7:50 leukocyte on in AM s in source Blood by data Automated count Hematocri 42.0 - % Normal No Jun 23 t [Volume 52.0 informati 2016 7:50 on in AM Fraction] source of Blood data Hemoglobi 14.1 - g/dL Normal No Jun 23 n 18.0 informati 2016 7:50 [Mass/vol on in AM ume] in source Blood data Lymphocyt 0.7 - 4.5 K/mm3 Normal No Jun 23 es informati 2016 7:50 [#/volume on in AM ] in source Unspecifi data ed specimen by Automated count Lymphocyt 10 - 50 % Normal No Jun 23 es informati 2016 7:50 [#/volume on in AM ] in source Unspecifi data ed specimen by Automated count Erythrocy 27 - 31.2 pg Normal No Jun 23 te mean informati 2016 7:50 corpuscul on in AM ar source hemoglobi data n [Entitic mass] Erythrocy 31.8 - g/dl Normal No Jun 23 te mean 35.4 informati 2016 7:50 corpuscul on in AM ar source hemoglobi data n concentra tion [Mass/vol ume] by Automated count Erythrocy 82.2 - fL Normal No Jun 23 te mean 97.8 informati 2016 7:50 corpuscul on in AM ar volume source [Entitic data volume] by Automated count Monocytes 0.1 - 1.0 K/mm3 Normal No Jun 23 informati 2016 7:50 [#/volume on in AM ] in source Blood by data Automated count Monocytes 1.7 - 9.3 % Normal No Jun 23 / informati 2016 7:50 leukocyte on in AM s in source Blood by data Automated count Platelets 142 - 424 K/mm3 Normal No Jun 23 informati 2016 7:50 [#/volume on in AM ] in source Blood data Erythrocy 4.6 - 6.2 M/mm3 Normal No Jun 23 isabelle informati 2016 7:50 [#/volume on in AM ] in source Amniotic data fluid Erythrocy 11.5 - % Normal No Jun 23 te 17.5 informati 2016 7:50 distribut on in AM ion width source [Entitic data volume] by Automated count Leukocyte 4.8 - K/mm3 Normal No Jun 23 s 10.8 informati 2016 7:50 [#/volume on in AM ] in source Blood data Basic metabolic panel in Blood Observa Value Referen Units Interpr Notes Date tion ce etation Range Urea 7 - 18 mg/dL High No May 17 nitrogen inform2016 [Mass/vol on in 12:27 PM ume] in source Serum or data Plasma Calcium 8.5 - mg/dL Normal No May 17 [Mass/vol 10.1 informati 2016 ume] in on in 12:27 PM Serum or source Plasma data Chloride 98 - 107 mmoL/L Normal No May 17 [Moles/vo informati 2016 lume] in on in 12:27 PM Serum or source Plasma data Carbon 21.0 - mmoL/L Normal No May 17 dioxide, 32.0 informati 2016 total on in 12:27 PM [Moles/vo source lume] in data Serum or Plasma Creatinin 0.70 - mg/dL Normal No May 17 e 1.30 2016 [Mass/vol on in 12:27 PM ume] in source Serum or data Plasma Estimated >60 ML/MIN No REFERENCE May 17 informati RANGE: 2017 glomerula on in >60 12:27 PM r source ML/MIN/1. filtratio data 73 SQUARE n rate METERSIf (GF this patient is -A merican, then multiply theresult by 1.210. Glucose 74 - 106 mg/dL Normal No May 17 [Mass/vol informati 2016 ume] in on in 12:27 PM Serum or source Plasma data Potassium 3.5 - 5.1 mmoL/L Normal No May 17 inform2016 [Moles/vo on in 12:27 PM lume] in source Serum or data Plasma Sodium 136 - 145 mmoL/L Normal No May 17 [Moles/vo informati 2016 lume] in on in 12:27 PM Serum or source Plasma data Lipid 1996 panel in Serum or Plasma Observa Value Referen Units Interpr Notes Date tion ce etation Range Cholester < 200 mg/dL No No May 17 ol informati 2016 [Moles/vo on in on in 12:27 PM lume] in source source Unspecifi data data ed specimen Cholester 40 - 60 MG/DL Low No May 17 ol in HDL 2016 on in 12:27 PM [Mass/vol source ume] in data Serum or Plasma Cholester 0 - 130 mg/dL Normal No May 17 ol in LDL 2016 on in 12:27 PM [Mass/vol source ume] in data Serum or Plasma by calculati on Triglycer 30 - 200 mg/dL Normal No May 17 marti 2016 [Moles/vo on in 12:27 PM lume] in source Serum or data Plasma Cholester 0 - 40 No Normal No May 17 ol in informati informati 2016 VLDL on in on in 12:27 PM [Mass/vol source source ume] in data data Serum or Plasma Hepatic function 2000 panel in Serum or Plasma Observa Value Referen Units Interpr Notes Date tion ce etation Range Albumin 3.4 - 5.0 gm/dL Normal No May 17 [Mass/vol informati 2016 ume] in on in 12:27 PM Serum or source Plasma data Alkaline 46 - 116 U/L Normal No May 17 phosphata informati 2017 se on in 12:27 PM [Enzymati source c data activity/ volume] in Serum or Plasma Bilirubin 0.0 - 0.2 mg/dL High No May 17 .direct informati 2017 [Mass/vol on in 12:27 PM ume] in source Serum or data Plasma Bilirubin 0 - 0.9 mg/dL High No May 17 .indirect informati 2017 on in 12:27 PM [Mass/vol source ume] in data Serum or Plasma Bilirubin 0.2 - 1.0 mg/dL High No May 17 .total informati 2017 [Mass/vol on in 12:27 PM ume] in source Serum or data Plasma Aspartate 15 - 37 U/L Normal No May 17 informati 2016 aminotran on in 12:27 PM sferase source [Enzymati data c activity/ volume] in Serum or Plasma Alanine 12 - 78 U/L Normal No May 17 aminotran informati 2016 sferase on in 12:27 PM [Enzymati source c data activity/ volume] in Serum or Plasma Protein 6.4 - 8.2 gm/dL High No May 17 [Mass/vol informati 2017 ume] in on in 12:27 PM Serum or source Plasma data
--- OUTSIDE RECORDS SUMMARY | 2017-07-30 06:19 | External Medical Summary Rpt ---
Author Author [facility] Connor, [facility] [employer] Organization [employer] Address Unknown Phone Unavailable [...] Date tion ce etation Range COMMENTS TO BIOCHEMIST: DO NOT NEED TO CALL PHARMACIST ACUPUNCTURIST WITH LEVEL Gentamici 4.0 - ug/ml Low [...] Date tion ce etation Range COMMENTS TO BIOCHEMIST: DO NOT NEED TO CALL PHARMACIST ACUPUNCTURIST WITH LEVEL Gentamici 4.0 - ug/ml Low No Sep 4 n 10.0 inform2016 4:45 [Mass/vol on in AM ume] in source Serum or data Plasma Gentamicin [Mass/volume] in Serum or Plasma Observa Value Referen Units Interpr Notes Date tion ce etation Range COMMENTS TO BIOCHEMIST: DO NOT NEED TO CALL PHARMACIST ACUPUNCTURIST WITH LEVEL Gentamici 4.0 - ug/ml Normal [...]
--- OUTSIDE RECORDS SUMMARY | 2017-07-30 07:08 | External Medical Summary Rpt ---
Demographics Preferred Language Tunisian Marital Status Unknown Hinduism Affiliation Unknown Race Unknown Ethnic Group Unknown Author Author , COLBY BOWMAN Address Unknown Phone Immunization Unable to retrieve immunization data due to connection failure with Immunization Registry. Please try again later.
--- OUTSIDE RECORDS SUMMARY | 2017-07-30 07:08 | External Medical Summary Rpt ---
Demographics Preferred Language Hungarian Marital Status Unknown Adventism Affiliation Unknown Race Unknown Ethnic Group Unknown Author Author , [facility] BOWMAN Address Unknown Phone Immunization Unable to retrieve immunization data due to connection failure with Immunization Registry. Please try again later.
--- OUTSIDE RECORDS SUMMARY | 2017-07-30 07:08 | External Medical Summary Rpt ---
Author Author COL[facility] Address Unknown Phone [email or web address] Purpose Continuity of Care Document - through 2016 Problems Code Diagnosis DOS Provider Status N39.0 URINARY TRACT INFECTION, SITE NOT SPECIFIED R06.02 SHORTNESS OF BREATH R30.0 DYSURIA R50.9 FEVER, UNSPECIFIED
--- OUTSIDE RECORDS SUMMARY | 2017-07-30 07:08 | External Medical Summary Rpt ---
Author Author [facility] Address Unknown Phone [email or web address] Purpose Continuity of Care Document - through 2016 Problems Code Diagnosis DOS Provider Status N39.0 URINARY TRACT INFECTION, SITE NOT SPECIFIED R06.02 SHORTNESS OF BREATH R30.0 DYSURIA R50.9 FEVER, UNSPECIFIED
== END 2017-06-28 18:00 | disposition home or self-care (01) | DRG 690 ==
LOC: ER 19:26 → 2ND 23:53
PROVIDERS: Family Medicine; General Practice; Internal Medicine Adolescent Medicine
DX: N39.0 Urinary tract infection, site not specified (principal); I10 Essential (primary) hypertension; Z72.0 Tobacco use; Z95.5 Presence of coronary angioplasty implant and graft; I25.119 Atherosclerotic heart disease of native coronary artery with unspecified angina pectoris; R06.09 Other forms of dyspnea; B96.20 Unspecified Escherichia coli [E. coli] as the cause of diseases classified elsewhere
CPT/HCPCS: J2405